=== PATIENT | female | born 1995 | race Caucasian/White ===

== ENCOUNTER 2023-05-01 08:55 | Emergency (ER) | payer BC ==
[2023-05-01 09:55] LABS: Bilirubin Neg (Negative); Blood, Urine Negative (Negative); Clarity Clear (Clear); Glucose, Urine (Dipstick) Normal (Negative); Ketone, Urine Negative (Negative); Leukocyte Negative (Negative); Nitrite Negative (Negative); Protein, Urine (Dipstick) Negative (Neg-Trace); Specific Gravity, Urine 1.015 (1.005-1.030); Urobilinogen Normal mg/dL (Less than 2)
[2023-05-01 09:57] LABS: Pregnancy Test - Urine (BHCG) Negative (Negative)
[2023-05-01 09:58] LABS: Pregu Control Background? CLEAR/WHITE (CLR/WHITE); Pregu Control Bar Appear? YES (CONTROL BAR); Specific Gravity 1.015 (1.002-1.036)
[2023-05-01 10:09] LABS: Bacteria/HPF 1+ HPF (None Seen); CAUTI Indications for Culture Pelvic or flank pain; RBC/HPF 0-3 HPF (0-3); Squamous Epithelial 0-3 HPF (0-3); WBC/HPF 0-3 HPF (0-3)
[2023-05-01 10:11] LABS: Urine Culture Reflex No No
[2023-05-01] MEDS ORDERED: Lorazepam 2 MG/ML VIAL ONE (10:12)
[2023-05-01 10:14] LABS: #Eosinphils 0.2 10x3/uL (0.0-0.5); #Monocytes 0.8 10x3/uL (0.0-1.1); #Neutrophils 5.1 10x3/uL (1.5-8.4); %Basophils 0.4 % (0.0-2.0); %Eosinophils 1.7 % (0.0-6.0); %Lymphocytes 42.5 % (18.0-47.0); %Monocytes 7.4 % (0.0-10.0); %Neutrophils 47.7 % (40.0-75.0); Hematocrit 44.5 % (34.9-44.5); Hemoglobin 15.7 g/dL (12.0-15.5); Mean Corpuscular HGB CONC 35.3 g/dL (32.0-36.0); Mean Corpuscular Hemoglobin 30.3 pg (27.0-33.0); Mean Corpuscular Volume 85.9 fl (81.6-98.3); Mean Platelet Volume 9.9 fl (7.4-10.4); Platelet Count 290 10x3/uL (150-450); RBC Distribution Width 11.9 % (11.5-14.5); Red Blood Cell (RBC) Count 5.18 10x6/uL (3.90-5.03); White Blood Cell (WBC) Count 10.7 10x3/uL (3.5-10.5)
[2023-05-01 10:37] LABS: ALT (SGPT) 27 U/L (8-55); AST (SGOT) 20 U/L (5-34); Albumin 4.1 g/dL (3.5-5.0); Alkaline Phosphatase 78 U/L (40-110); Anion Gap 14 mmol/L (10-20); BUN (Urea Nitrogen) 12 mg/dL (7.0-18.7); Bilirubin, Total 0.5 mg/dL (0.2-1.2); Calc. Creatinine Clearance 0 mL/min (70-130); Calcium 10.5 mg/dL (7.8-10.44); Carbon Dioxide 23 mmol/L (22-29); Chloride 103 mmol/L (98-107); Estimated GFR 101; Globulin 3.6 g/dL (2.4-3.5); Glucose 91 mg/dL (70-105); Lipase 19 U/L (8-78); Magnesium 1.8 mg/dL (1.6-2.6); Potassium 3.8 mmol/L (3.5-5.1); Protein, Total 7.7 g/dL (6.0-8.3); Sodium 136 mmol/L (136-145)
[2023-05-01] MEDS ORDERED: Azithromycin 250 MG TAB ONE (11:20)
[2023-05-01] MEDS ORDERED: cefTRIAXone (ROCEPHIN) 500 MG VIAL ONE (11:21)
[2023-05-01] MEDS ORDERED: Sterile Water 10 ML ONE (11:25)
[2023-05-01] MEDS ORDERED: Ondansetron PF 4 MG/2 ML Vial ONE (12:27)
[2023-05-03 02:34] LABS: Chlamydia by PCR, Vaginal Swab *Indeterminate (NotDetected); GC by PCR, Vaginal Swab *Indeterminate (NotDetected)
== END 2023-05-01 12:45 | disposition home or self-care (01) ==
LOC: CSHERS 08:55
DX: R10.9 Unspecified abdominal pain (principal); Z20.2 Contact with and (suspected) exposure to infections with a predominantly sexual mode of transmission; Z76.0 Encounter for issue of repeat prescription
CPT/HCPCS: 80053; 81001; 81025; 83690; 83735; 85025; 87480; 87491; 87510; 87591; 87660; 93005; 96361; 96372; 96374; 96375; J0696; J2060; J2405